=== PATIENT | male | born 1995 | race Two or more races ===

== ENCOUNTER 2025-04-13 15:42 | Inpatient (IN) | payer OTHER ==
[~2025-04-13] VITALS: Ht 172.7 cm; Wt 92.0 kg
[2025-04-13 16:32] LABS: PLATELET COUNT (AUTO) 256 K/uL (150-450); RED BLOOD CELL COUNT(AUTO) 5.15 MIL/uL (4.50-5.90); RED CELL DISTRIBUTION WIDTH 14.1 % (11.5-14.5); WHITE BLOOD COUNT (AUTO) 4.7 K/uL (4.5-11.0)
[2025-04-13 16:39] LABS: CALCIUM, TOTAL 8.9 mg/dL (8.8-10.5); CREATININE 1.01 mg/dL (0.60-1.30); GLOMERULAR FILTR. RATE CALC > 60 mL/min (>60); GLUCOSE,RANDOM 107 mg/dL (70-110); SODIUM SERUM 136 mmol/L (136-145); UREA NITROGEN, BLOOD 12 mg/dL (7-18)
[2025-04-13 16:56] LABS: ALCOHOL, BLOOD (SERUM) < 3 mg/dL (0-10)
[2025-04-13 17:02] LABS: COVID AG,FIA SOURCE NASAL SWAB
[2025-04-13 17:09] LABS: APPEARANCE,URINE CLEAR (CLEAR); GLUCOSE, URINE (UA) NEGATIVE (NEGATIVE); LEUKOCYTE ESTERASE ,URINE NEGATIVE (NEGATIVE); NITRATE,URINE NEGATIVE (NEGATIVE); OCCULT BLOOD,URINE NEGATIVE (NEGATIVE); PH,URINE DRUG SCREEN 7.0 (5.0-8.0); SPECIFIC GRAVITIY, URINE 1.017 (1.003-1.030)
[2025-04-13 17:15] LABS: ALCOHOL, URINE DRUG SCREEN NEGATIVE (NEGATIVE); AMPHET/METH SCREEN,URINE NEGATIVE (NEGATIVE); BARBITURATE SCREEN, URINE NEGATIVE (NEGATIVE); CANNABINOID SCREEN,URINE POSITIVE (NEGATIVE); COCAINE SCREEN,URINE NEGATIVE (NEGATIVE); METHADONE SCREEN, URINE NEGATIVE (NEGATIVE)
[2025-04-13 17:25] LABS: SARS-COV2 (COVID) ANTIGEN,FIA Negative (Negative)
[2025-04-13] MEDS ORDERED: ZOLPIDEM TARTRATE 10 MG TABLET PO PRN (19:45)
[2025-04-13] MEDS ORDERED: MAGNESIUM HYDROXIDE SUSPENSION 30 ML UDCUP PO PRN (20:45)
[2025-04-13] MEDS ORDERED: LOPERAMIDE HCL 2 MG CAPSULE PO PRN (20:45)
[2025-04-13] MEDS ORDERED: TUBERCULIN, PURIFIED PROTEIN DERIVATIVE 5 TU/0.1 ML SYRINGE ID ONE (20:45)
[2025-04-13] MEDS ORDERED: ACETAMINOPHEN 325 MG TABLET PO PRN (20:45)
[2025-04-13] MEDS ORDERED: GuaiFENesin/D-METHORPHAN [SUGAR-FREE] 200-20MG/10 ML SYRUP UDCUP PO PRN (20:45)
[2025-04-13] MEDS ORDERED: PROMETHAZINE HCL 25 MG TABLET PO PRN (20:45)
[2025-04-13] MEDS ORDERED: MAG HYDROX/ALUMINUM HYD/SIMETH ES 30 ML SUSPENSION UDCUP PO PRN (20:45)
[2025-04-13] MEDS: MELATONIN 5 MG TABLET PO SCH (21:55)
[2025-04-14] VITALS (13 sets, daily range): BP systolic 102–133; BP diastolic 67–86; PULSE 61–78; RESP 16–18; TEMP 97.3–98.4; O2SAT 98–100
[2025-04-14] MEDS: OMEGA-3/DHA/EPA/FISH OIL 1,000 MG CAPSULE PO SCH (08:29)
[2025-04-14] MEDS: THIAMINE 100 MG TABLET PO SCH (08:29)
[2025-04-14] MEDS: MULTIVITAMINS WITH MINERALS, THERAPEUTIC TABLET PO SCH (08:29)
[2025-04-14] MEDS: FOLIC ACID 1 MG TABLET PO SCH (08:29)
[2025-04-14 09:38] LABS: PLATELET COUNT (AUTO) 261 K/uL (150-450); RED BLOOD CELL COUNT(AUTO) 5.45 MIL/uL (4.50-5.90); RED CELL DISTRIBUTION WIDTH 14.0 % (11.5-14.5); WHITE BLOOD COUNT (AUTO) 4.4 K/uL (4.5-11.0)
[2025-04-14 10:11] LABS: ASPARTATE AMINOTRANSFERASE 65 U/L (15-37); CALCIUM, TOTAL 9.1 mg/dL (8.8-10.5); CHOL/HDL RATIO 2.1 (4.2-7.3); CREATININE 1.00 mg/dL (0.60-1.30); GLOMERULAR FILTR. RATE CALC > 60 mL/min (>60); GLUCOSE,RANDOM 80 mg/dL (70-110); LDL CHOL (CALC.) 105 mg/dL (0-130); SODIUM SERUM 139 mmol/L (136-145); TOTAL PROTEIN, SERUM 8.0 g/dL (6.4-8.2); UREA NITROGEN, BLOOD 13 mg/dL (7-18)
[2025-04-14] MEDS: POTASSIUM CHLORIDE 20 MEQ ER TABLET PO ONE (11:47)
[2025-04-14] MEDS: CYANOCOBALAMIN 1,000 MCG/ML VIAL IM ONE (18:02)
[2025-04-14] MEDS: MIRTAZAPINE 15 MG TABLET PO SCH (20:41)
[2025-04-15 08:41] VITALS: BP 114/74; PULSE 90; RESP 16; TEMP 98.1; O2SAT 98
[2025-04-15 08:42] VITALS: BP 114/74; PULSE 90; RESP 16; TEMP 98.1; O2SAT 98
[2025-04-15] MEDS: NALTREXONE HCL 50 MG TABLET PO SCH (08:58)
[2025-04-15] MEDS ORDERED: NALT50TA33 PO (15:30)
[2025-04-15] MEDS ORDERED: FLUO-418 PO (15:30)
[2025-04-15] MEDS ORDERED: OMEG100033 PO (15:30)
[2025-04-15] MEDS ORDERED: MIRT-89 PO (15:30)
[2025-04-15] MEDS ORDERED: MELA5TAB40 PO (15:30)
[2025-04-15 20:10] VITALS: BP 127/84; PULSE 86; RESP 18; TEMP 98.3; O2SAT 99
[2025-04-15 21:45] VITALS: BP 123/99; PULSE 86; RESP 18; TEMP 98.3; O2SAT 99
[2025-04-16 08:04] VITALS: BP 127/83; PULSE 91; RESP 18; TEMP 98.1; O2SAT 99
== END 2025-04-16 11:20 | disposition home or self-care (01) | DRG 885 ==
LOC: EMS 15:42 → B3A 22:49
PROVIDERS: ADMIT Psychiatry & Neurology Psychiatry; ATTEND Psychiatry & Neurology Psychiatry
PROC: GZHZZZZ Group Psychotherapy (ICD-10-PCS; principal; 2025-04-14)
PROC: GZ58ZZZ Individual Psychotherapy, Cognitive-Behavioral (ICD-10-PCS; 2025-04-14)
PROC: GZ56ZZZ Individual Psychotherapy, Supportive (ICD-10-PCS; 2025-04-15)
DX: F33.2 Major depressive disorder, recurrent severe without psychotic features (principal); G93.41 Metabolic encephalopathy; Z20.822 Contact with and (suspected) exposure to COVID-19; T50.992A Poisoning by other drugs, medicaments and biological substances, intentional self-harm, initial encounter; F10.20 Alcohol dependence, uncomplicated; Y92.89 Other specified places as the place of occurrence of the external cause
CPT/HCPCS: 80048; 80053; 80061; 80307; 81003; 83036; 84436; 84439; 84443; 85025; 86592; 93005; 99285; G0480; G0481; J3420